=== PATIENT | female | born 1975 | race Caucasian/White ===

== ENCOUNTER → 2017-02-21 | Outpatient (CLI) | payer BC ==
[~2017-02-21] MED LIST: ALPR0.25 PO; HYDR25TA4 PO; MULT-506 PO; SERT-234 PO
[2017-02-21 09:49] LABS: BASO % 0.3 %; BASO ABS # 0.03 K/uL (0-0.2); COMPLETE YES; EOS % 0.7 %; HEMATOCRIT 45.2 % (37-47); IG% 0.2 %; LYMPH ABS # 2.84 K/uL (1.2-3.4); MEAN CELL VOLUME 91.1 fL (80-100); MEAN CORPUSCULAR HEMOGLOBIN 31.5 pg (25-34); MEAN CORPUSCULAR HGB CONC 34.5 g/dl (32-36); MEAN PLATELET VOLUME 9.2 fL (7.4-10.4); MONO % 4.5 %; NEUT % 70.3 %; PLATELET COUNT 268 K/uL (130-400); RED BLOOD COUNT 4.96 M/uL (4.2-5.4); WHITE BLOOD COUNT 11.81 K/uL (4.8-10.8)
[2017-02-21 10:28] LABS: ALT/SGPT 22 U/L (12-78); AST/SGOT 12 U/L (15-37); BLOOD UREA NITROGEN 12 mg/dl (7-18); BUN/CREATININE RATIO 21.5 (10-20); CALCIUM 9.4 mg/dl (8.5-10.1); CARBON DIOXIDE 27 mmol/L (21-32); CHLORIDE 106 mmol/L (98-107); CREATININE 0.57 mg/dl (0.60-1.20); GLUCOSE 88 mg/dl (70-99); POTASSIUM 3.7 mmol/L (3.5-5.1); SODIUM 139 mmol/L (136-145)
[2017-02-21 10:36] LABS: ALB/GLOB RATIO 1.1 (0.9-2); ALKALINE PHOSPHATASE 87 U/L (45-117); C-REACTIVE PROTEIN 1.62 mg/dl (0-0.29); CHOLESTEROL 233 mg/dl (0-200); CHOLESTEROL/HDL RATIO 3.8; HDL CHOLESTEROL 61 mg/dl; LDL CHOLESTEROL CALCULATED 153 mg/dl; TRIGLYCERIDES 96 mg/dl (0-150); VERY LOW DENSITY LIPOPROT CALC 19 mg/dl
[2017-02-21 11:46] LABS: LYME DISEASE AB IGG NEG (NEG); LYME DISEASE AB IGM NEG (NEG)
== END | disposition home or self-care (01) ==
LOC: C.LABSPEC 09:13
PROVIDERS: ATTEND Internal Medicine
DX: M25.50 Pain in unspecified joint (principal); K59.00 Constipation, unspecified; Z13.220 Encounter for screening for lipoid disorders

== ENCOUNTER → 2017-03-14 | Outpatient (CLI) | payer BC ==
[2017-03-14 09:15] LABS: BASO % 0.3 %; BASO ABS # 0.04 K/uL (0-0.2); COMPLETE YES; EOS % 0.8 %; HEMATOCRIT 44.7 % (37-47); IG% 0.2 %; LYMPH % 16.9 %; LYMPH ABS # 2.16 K/uL (1.2-3.4); MEAN CELL VOLUME 90.3 fL (80-100); MEAN CORPUSCULAR HEMOGLOBIN 31.9 pg (25-34); MEAN CORPUSCULAR HGB CONC 35.3 g/dl (32-36); MEAN PLATELET VOLUME 9.1 fL (7.4-10.4); MONO % 5.1 %; NEUT % 76.7 %; PLATELET COUNT 250 K/uL (130-400); RED BLOOD COUNT 4.95 M/uL (4.2-5.4); WHITE BLOOD COUNT 12.78 K/uL (4.8-10.8)
[2017-03-14 09:23] LABS: ALT/SGPT 20 U/L (12-78); BLOOD UREA NITROGEN 7 mg/dl (7-18); BUN/CREATININE RATIO 11.7 (10-20); C-REACTIVE PROTEIN 1.81 mg/dl (0-0.29); CALCIUM 9.1 mg/dl (8.5-10.1); CARBON DIOXIDE 26 mmol/L (21-32); CHLORIDE 105 mmol/L (98-107); CREATININE 0.63 mg/dl (0.60-1.20); GLUCOSE 89 mg/dl (70-99); POTASSIUM 3.6 mmol/L (3.5-5.1); SODIUM 137 mmol/L (136-145)
[2017-03-14 09:26] LABS: ALKALINE PHOSPHATASE 94 U/L (45-117); AST/SGOT 15 U/L (15-37)
[2017-03-14 09:34] LABS: RHEUMATOID FACTOR < 10.0 U/mL (0-15)
== END | disposition home or self-care (01) ==
LOC: C.LAB 08:51
PROVIDERS: ATTEND Internal Medicine
DX: M25.50 Pain in unspecified joint (principal)

== ENCOUNTER → 2017-04-23 | Outpatient (CLI) | payer BC ==
--- NOTE | 2017-04-23 10:16 | DIAGNOSTIC IMAGING REPORT ---
L-SPINE MIN 4 VIEWS ROUTINE, SI JOINTS 3 OR MORE VIEWS HISTORY: 41 years-old Female M54.40 Low back pain with [id number] Bilateral knee painM25 acute low back pain without reported trauma COMPARISON: CT abdomen and pelvis 07/13/2014 TECHNIQUE: 5 views of the lumbar spine with 3 views of the SI joints FINDINGS: LUMBAR SPINE: 5 lumbar type vertebral segments are present. No spondylolysis or spondylolisthesis. No acute fracture or subluxation of the lumbar spine. Moderate intervertebral disc space narrowing at L5-S1. Moderate endplate spurring is seen at T11-T12. SI JOINTS: Minimal degenerative changes of the SI joints. No erosions, acute fracture or subluxation. Probable bone island of the left iliac wing measures 9 mm. Phlebolith of the pelvis. IMPRESSION: 1. No acute fracture or subluxation of the lumbar spine or SI joints. 2. Moderate intervertebral disc space narrowing at L5-S1. The above report was generated using voice recognition software. It may contain grammatical, syntax or spelling errors. Electronically signed by: Dusty Castaneda M.D. 04/23/2017 10:15 AM Dictated Date/Time: 04/23/2017 10:12 AM
--- NOTE | 2017-04-23 10:18 | DIAGNOSTIC IMAGING REPORT ---
R HAND MIN 3 VIEWS ROUTINE HISTORY: 41 years-old Female M54.40 Low back pain with [id number] Bilateral knee painM25 acute and vein COMPARISON: None available TECHNIQUE: 3 views of the right hand FINDINGS: No acute fracture, dislocation or significant degenerative changes. Soft tissues are unremarkable without opaque foreign body. IMPRESSION: No acute fracture or dislocation. The above report was generated using voice recognition software. It may contain grammatical, syntax or spelling errors. Electronically signed by: Dusty Castaneda M.D. 04/23/2017 10:16 AM Dictated Date/Time: 04/23/2017 10:15 AM
--- NOTE | 2017-04-23 10:20 | DIAGNOSTIC IMAGING REPORT ---
LEFT HAND 3 VIEWS CLINICAL HISTORY: Arthralgias. FINDINGS: 3 views of left hand are obtained. No prior studies are available for comparison at the time of dictation. The skeletal structures are well mineralized. No fracture is seen. The joint spaces of the hand are well-maintained. No erosive change is identified. The overlying soft tissues are within normal limits. IMPRESSION: Unremarkable radiographic assessment of the left hand. Electronically signed by: Dominik Carroll M.D. 04/23/2017 10:19 AM Dictated Date/Time: 04/23/2017 10:18 AM
--- NOTE | 2017-04-23 10:22 | DIAGNOSTIC IMAGING REPORT ---
R KNEE 1 OR 2 VIEWS ROUTINE HISTORY: 41 years-old Female M25.50 LrizlxopmtK80.40 Low back pain with [id number] Bilat acute right knee pain COMPARISON: None available TECHNIQUE: AP and lateral views of the right knee FINDINGS: No significant degenerative changes identified. Small joint effusion suspected. No acute fracture or dislocation. Round calcifications of the pretibial tissues suggest possible vascular calcifications. There is no intra-articular loose body. IMPRESSION: Small joint effusion without acute bony abnormality or significant degenerative changes. The above report was generated using voice recognition software. It may contain grammatical, syntax or spelling errors. Electronically signed by: Dusty Castaneda M.D. 04/23/2017 10:21 AM Dictated Date/Time: 04/23/2017 10:19 AM
[2017-04-23 10:46] LABS: TOTAL IRON BINDING CAPACITY 356 mcg/dl (250-450)
== END | disposition home or self-care (01) ==
LOC: C.RAD1850 09:20
PROVIDERS: ATTEND Internal Medicine Rheumatology
DX: M25.561 Pain in right knee (principal); M25.562 Pain in left knee; M54.40 Lumbago with sciatica, unspecified side; M79.641 Pain in right hand; M79.642 Pain in left hand